=== PATIENT | female | born 1965 | race Caucasian/White ===

== ENCOUNTER 2017-04-28 16:59 | Emergency (ER) | payer OTHER ==
[~2017-04-28 16:59] MED LIST: ALBU8.5H12 IH; AZIT500T47 PO; BUDE10.2 INH; BUP100 PO; BUPR-472 PO; CEFU500T10 PO; CYCL10TA29 PO; DES100PT PO; DESV50TA9 PO; DUL100/5PT INH; ENO100I SC; HYDR-4228 PO; IBUP800T37 PO; LOR5/325 PO; METH20TA33 PO; PER PO; PRED20TA6 PO; WAR5 PO
--- NOTE | 2017-04-28 17:16 | ER Report ---
History and Physical Time Seen By MD: 17:16 (TORO SEQUEIRA DO) HPI/ROS CHIEF COMPLAINT: l flank pain HISTORY OF PRESENT ILLNESS: Pt states that she started with left flank pain 4 days ago. Pain is sharp and is now constant. unable to get comfortable. + nausea. no vomiting. no diarrhea now but states when she was in [place] Apr 06 she had diarrhea but it resolved. Pt denies fever. no sob. no cough or cp. Pt denies dysuria. pt states she also has had intermittent rlq abd pain for about a month but that is not there currently. PT tried excedrin pain with no relief. REVIEW OF SYSTEMS: Constitutional: No fever, no chills. Eyes: No discharge. ENT: No sore throat. Cardiovascular: No chest pain, no palpitations. Respiratory: No cough, no shortness of breath. Gastrointestinal: +L flank/ abdominal pain, no vomiting, + nausea Genitourinary: No hematuria. Musculoskeletal: + left flank/ back pain. Skin: No rashes. Neurological: No headache. (TORO SEQUEIRA DO) Allergies: Coded Allergies: codeine (Verified Allergy, Mild, VOMITING, 12/22/15) Home Meds Active Scripts Fluconazole (FLUCONAZOLE) 150 Mg Tab, 150 MG FT ONCE for treatment of yeast infection, #1 TAB Prov:DUGLAS ÁLVAREZ 04/28/17 Ondansetron Hcl (ZOFRAN) 4 Mg Tablet, 4 MG PO Q6H Y for NAUSEA/VOMITING, #12 Prov:DUGLAS ÁLVAREZ Phillip SANTIAGO 04/28/17 Oxycodone Hcl/Acetaminophen (PERCOCET 5-325 MG TABLET) 1 Each Tablet, 1 EACH PO Q4-6H Y for PAIN, #12 Prov:MEDARDO ÁLVAREZY Phillip SANTIAGO 04/28/17 Ciprofloxacin Hcl (CIPRO) 500 Mg Tablet, 500 MG PO BID for infection, #14 Prov:DUGLAS ÁLVAREZ 04/28/17 Reported Medications Lamotrigine (LAMICTAL) 200 Mg Tablet, 200 MG PO 04/28/17 Methylphenidate Hcl (RITALIN) 20 Mg Tablet, 40 MG PO 04/28/17 Hydroxyzine Hcl (HYDROXYZINE HCL) 50 Mg Tablet, 50 MG PO 12/22/15 Bupropion Hcl (WELLBUTRIN XL) 150 Mg Tab.er.24h, 300 MG PO DAILY, #30 4/12/15 Discontinued Reported Medications Albuterol Sul Hfa 90 Mcg 8 Gm (VENTOLIN HFA 90 MCG 8 GM) 8.5 Gm Hfa.aer.ad, 2 PUFF IH Q4-6H Y for SHORTNESS OF BREATH 05/24/14 Discontinued Scripts Methylphenidate Hcl (RITALIN) 20 Mg Tablet, 20 MG PO 1-2XD, #60 TAB Prov:MIGNON HARPER MD 05/25/14 Past Medical/Surgical History pmhx: sleep apnea, ADHD Pshx: tubal, uterin ablation, TA, b/l knee surgery, wrist L, stomach stappling, lumbar fusion (TORO SEQUEIRA DO) Reviewed Nurses Notes: Yes (TORO SEQUEIRA DO) Hx Smoking: No Smoking Status: Never Smoker Exposure to Second Hand Smoke?: Yes (as a child) Hx Substance Use Disorder: No Hx Alcohol Use: Yes (TORO SEQUEIRA DO) Constitutional Vital Sign - Last 24 Hours 04/28/17 04/28/17 04/28/17 04/28/17 17:14 17:15 17:18 17:29 Temp 98.2 Pulse ??? 82 82 Resp 16 B/P (MAP) 119/82 (94) 119/82 Pulse Ox 96 94 O2 Delivery Room Air 04/28/17 04/28/17 04/28/17 04/28/17 17:44 17:47 17:59 18:04 Pulse 74 78 75 B/P (MAP) 110/67 (81) Pulse Ox 95 91 92 (DUGLAS ÁLVAREZ DO) Physical Exam General Appearance: The patient is alert, has no immediate need for airway protection and no signs of toxicity. Eyes: Pupils equal and round no pallor or injection, EOMI ENT: no pharyngeal erythema or exudates, Mucous membranes are moist, TM are nl b/l Respiratory: There are no retractions, lungs are clear to auscultation. Cardiovascular: Regular rate and rhythm. pulses are equal and symmetrical Gastrointestinal: Abdomen is soft and non tender, no masses, bowel sounds normal, no guarding, no rigidity or rebound Neurological: Cranial nerves II-XII grossly intact, no sensory or motor loss Skin: Warm and dry, no rashes. Musculoskeletal: Neck is supple non tender, no vertebral tenderness, + L CVA tenderness Extremities are nontender, nonswollen and have full range of motion. DIFFERENTIAL DIAGNOSIS: After history and physical exam differential diagnosis was considered for kidney stone, uti, pyelo, muscleskeletal, colitis (LAURORA,TROO V DO) Medical Decision Making Data Points Result Diagram: 04/28/17 1800 04/28/17 1800 Laboratory Hematology Test 04/28/17 17:12 04/28/17 18:00 Urine Color Yellow Urine Clarity Slightly-cloudy Urine pH 5.0 pH (4.8-9.5) Urine Specific [place] 1.027 Urine Protein Negative mg/dL (NEGATIVE) Urine Glucose (UA) Negative mg/dL (NEGATIVE) Urine Ketones Negative mg/dL (NEGATIVE) Urine Blood Negative (NEGATIVE) Urine Nitrite Negative (NEGATIVE) Urine Bilirubin Negative (NEGATIVE) Urine Urobilinogen Negative mg/dL (0.2-1.9) Urine Leukocyte Esterase Moderate (NEGATIVE) Urine RBC 2 /HPF (0-2/HPF) Urine WBC 6 /HPF (0-5/HPF) Urine Squamous Epithelial Cells Many /LPF (</=FEW) Urine Bacteria Few /HPF (NONE-FEW) Urine Mucus Few /HPF (NONE-FEW) Red Blood Count 4.80 M/uL (4.17-5.56) Mean Corpuscular Volume 93.2 fL (80.0-96.0) Mean Corpuscular Hemoglobin 32.2 pg (26.0-33.0) Mean Corpuscular Hemoglobin Concent 34.5 g/dL (32.0-36.0) Red Cell Distribution Width 13.0 % (11.5-14.5) Mean Platelet Volume 10.3 fL (7.2-11.1) Neutrophils (%) (Auto) 52.2 % (39.4-72.5) Lymphocytes (%) (Auto) 35.5 % (17.6-49.6) Monocytes (%) (Auto) 7.7 % (4.1-12.4) Eosinophils (%) (Auto) 3.7 % (0.4-6.7) Basophils (%) (Auto) 0.9 % (0.3-1.4) Nucleated RBC Relative Count (auto) 0.0 /100WBC Neutrophils # (Auto) 3.7 K/uL (2.0-7.4) Lymphocytes # (Auto) 2.5 K/uL (1.3-3.6) Monocytes # (Auto) 0.5 K/uL (0.3-1.0) Eosinophils # (Auto) 0.3 K/uL (0.0-0.5) Basophils # (Auto) 0.1 K/uL (0.0-0.1) Nucleated RBC Absolute Count (auto) 0.00 K/uL Sodium Level 140 mmol/L (137-145) Potassium Level 4.0 mmol/L (3.5-5.0) Chloride Level 102 mmol/L (98-107) Carbon Dioxide Level 26 mmol/L (22-31) Blood Urea Nitrogen 9 mg/dl (7-18) Creatinine 0.80 mg/dl (0.52-1.04) Glomerular Filtration Rate Calc > 60.0 Random Glucose 65 mg/dl (75-110) Calcium Level 9.4 mg/dl (8.4-10.2) Total Bilirubin 0.4 mg/dl (0.2-1.3) Aspartate Amino Transf (AST/SGOT) 32 U/L (0-35) Alanine Aminotransferase (ALT/SGPT) 37 U/L (0-56) Alkaline Phosphatase 85 U/L (0-126) Total Protein 7.4 gm/dl (6.3-8.2) Albumin 4.1 g/dl (3.5-5.0) Chemistry Test 04/28/17 17:12 04/28/17 18:00 Urine Color Yellow Urine Clarity Slightly-cloudy Urine pH 5.0 pH (4.8-9.5) Urine Specific [place] 1.027 Urine Protein Negative mg/dL (NEGATIVE) Urine Glucose (UA) Negative mg/dL (NEGATIVE) Urine Ketones Negative mg/dL (NEGATIVE) Urine Blood Negative (NEGATIVE) Urine Nitrite Negative (NEGATIVE) Urine Bilirubin Negative (NEGATIVE) Urine Urobilinogen Negative mg/dL (0.2-1.9) Urine Leukocyte Esterase Moderate (NEGATIVE) Urine RBC 2 /HPF (0-2/HPF) Urine WBC 6 /HPF (0-5/HPF) Urine Squamous Epithelial Cells Many /LPF (</=FEW) Urine Bacteria Few /HPF (NONE-FEW) Urine Mucus Few /HPF (NONE-FEW) White Blood Count 7.0 k/uL (4.5-11.0) Red Blood Count 4.80 M/uL (4.17-5.56) Hemoglobin 15.4 g/dL (12.0-16.0) Hematocrit 44.8 % (34.0-47.0) Mean Corpuscular Volume 93.2 fL (80.0-96.0) Mean Corpuscular Hemoglobin 32.2 pg (26.0-33.0) Mean Corpuscular Hemoglobin Concent 34.5 g/dL (32.0-36.0) Red Cell Distribution Width 13.0 % (11.5-14.5) Platelet Count 252 K/uL (150-450) Mean Platelet Volume 10.3 fL (7.2-11.1) Neutrophils (%) (Auto) 52.2 % (39.4-72.5) Lymphocytes (%) (Auto) 35.5 % (17.6-49.6) Monocytes (%) (Auto) 7.7 % (4.1-12.4) Eosinophils (%) (Auto) 3.7 % (0.4-6.7) Basophils (%) (Auto) 0.9 % (0.3-1.4) Nucleated RBC Relative Count (auto) 0.0 /100WBC Neutrophils # (Auto) 3.7 K/uL (2.0-7.4) Lymphocytes # (Auto) 2.5 K/uL (1.3-3.6) Monocytes # (Auto) 0.5 K/uL (0.3-1.0) Eosinophils # (Auto) 0.3 K/uL (0.0-0.5) Basophils # (Auto) 0.1 K/uL (0.0-0.1) Nucleated RBC Absolute Count (auto) 0.00 K/uL Glomerular Filtration Rate Calc > 60.0 Calcium Level 9.4 mg/dl (8.4-10.2) Total Bilirubin 0.4 mg/dl (0.2-1.3) Aspartate Amino Transf (AST/SGOT) 32 U/L (0-35) Alanine Aminotransferase (ALT/SGPT) 37 U/L (0-56) Alkaline Phosphatase 85 U/L (0-126) Total Protein 7.4 gm/dl (6.3-8.2) Albumin 4.1 g/dl (3.5-5.0) Urinalysis Test 04/28/17 17:12 Urine Color Yellow Urine Clarity Slightly-cloudy Urine pH 5.0 pH (4.8-9.5) Urine Specific [place] 1.027 Urine Protein Negative mg/dL (NEGATIVE) Urine Glucose (UA) Negative mg/dL (NEGATIVE) Urine Ketones Negative mg/dL (NEGATIVE) Urine Blood Negative (NEGATIVE) Urine Nitrite Negative (NEGATIVE) Urine Bilirubin Negative (NEGATIVE) Urine Urobilinogen Negative mg/dL (0.2-1.9) Urine Leukocyte Esterase Moderate (NEGATIVE) Urine RBC 2 /HPF (0-2/HPF) Urine WBC 6 /HPF (0-5/HPF) Urine Squamous Epithelial Cells Many /LPF (</=FEW) Urine Bacteria Few /HPF (NONE-FEW) Urine Mucus Few /HPF (NONE-FEW) (DUGLAS ÁLVAREZ DO) Microbiology Microbiology Date/Time Source Procedure Growth Status 04/28/17 18:00 Clean Catch Midstream Ur Urine Culture - Final CONTAMINATED URINE:... Complete (DUGLAS ÁLVAREZ DO) EKG/Imaging Imaging Results: CT scan of the abdomen and pelvis with IV contrast was obtained. The results of the study are COMPUTED TOMOGRAPHY OF THE Abdomen and Pelvis with CONTRAST INDICATION: Left flank pain. TECHNIQUE: Contiguous axial 3.[address] images were obtained through the abdomen and pelvis after the administration of 75 cc Isovue-370. Coronal and sagittal reformatted images were submitted. COMPARISON: Chest and lumbar spine radiographs from January 19, 2016 and August. FINDINGS: Lung bases: Trace atelectasis at the lung bases. Liver and hepatic vasculature: No focal liver lesion. No ascites. Gallbladder and bile ducts: The common bile duct is dilated which may be sequela of cholecystectomy. There is faint haziness within the fat adjacent to the common bile duct and the pancreatic head. No discrete fluid collection. No obstructive mass or radiopaque stone. No pancreatic duct dilation. Spleen: Normal Pancreas: Pancreatic body and tail are normal. Haziness in the region of the pancreatic head as above. Adrenals: Normal Kidneys, ureters and bladder: There is no hydronephrosis. The proximal ureters are normal in caliber. The distal ureters at the bladder as well as the bladder are obscured by streak artifact from the hip prostheses. Retroperitoneum and aorta: Normal caliber aorta. GI tract, mesentery and peritoneum: Postsurgical change at the stomach. No bowel obstruction. No free fluid or free air. There are a few scattered colonic diverticula without findings of diverticulitis. Uterus and adnexa: Largely obscured. Bones and soft tissues: Anterolisthesis of L5 on S1 is degenerative in nature with severe facet arthropathy at this level and partial fusion across the facets. Multilevel disc, endplate, and facet arthropathy at additional lumbar levels. IMPRESSION: 1. There is no hydronephrosis or stone in the proximal collecting system. The downstream ureters and the bladder are obscured by streak artifact. 2. Subtle haziness adjacent to the common bile duct in the region of the pancreatic head could potentially reflect pancreatitis. Correlate with pancreatic enzymes and suspicion thereof. 3. Dilation of the common bile duct may be sequelae of cholecystectomy as there is no obstructing mass or radiopaque stone. The study was read by the radiologist. I viewed the images myself on the PACS system. (DUGLAS ÁLVAREZ DO) ED Course/Re-evaluation ED Course check labs and ct Signed out to Dr. Álvarez pending CT report. Decision to Disposition Date: Apr 28, 2017 Decision to Disposition Time: 19:00 (TORO SEQUEIRA DO) ED Course Care assumed at shift change awaiting diagnostic CT results. The results were unremarkable. The a copy of the report was provided to the patient. The results were discussed with the patient. He is discharged home with conservative treatment plan. Patient has urinary tract symptoms. She'll be covered with Cipro. She is given Percocet for pain relief and Zofran for nausea treatment. Patient also given fluconazole for likely yeast infection, which she states she gets frequently when she receives antibiotics. Patient advised to follow-up with primary care if unimproved in 3-5 days for further diagnostic evaluation. Referral to specialty care. Decision to Disposition Date: Apr 28, 2017 Decision to Disposition Time: 19:18 (DUGLAS ÁLVAREZ DO) Depart Departure Latest Vital Signs Vital Signs Date Time Temp Pulse Resp B/P (MAP) Pulse Ox O2 Delivery O2 Flow Rate FiO2 04/28/17 18:04 75 92 04/28/17 17:47 110/67 (81) 04/28/17 17:18 98.2 16 Room Air (DUGLAS ÁLVAREZ DO) Impression: Primary Impression: Abdominal pain Additional Impressions: Urinary tract infection Nausea Condition: Improved Disposition: HOME OR SELF-CARE Referrals: PAUL FERGUSON MD (PCP) New Scripts Fluconazole (FLUCONAZOLE) 150 Mg Tab 150 MG FT ONCE for treatment of yeast infection, #1 TAB Prov: DUGLAS ÁLVAREZ DO 04/28/17 Ondansetron Hcl (ZOFRAN) 4 Mg Tablet 4 MG PO Q6H Y for NAUSEA/VOMITING, #12 Prov: DUGLAS ÁLVAREZ DO 04/28/17 Oxycodone Hcl/Acetaminophen (PERCOCET 5-325 MG TABLET) 1 Each Tablet 1 EACH PO Q4-6H Y for PAIN, #12 Prov: DUGLAS ÁLVAREZ DO 04/28/17 Ciprofloxacin Hcl (CIPRO) 500 Mg Tablet 500 MG PO BID for infection, #14 Prov: DUGLAS ÁLVAREZ DO 04/28/17 Patient Instructions: Abdominal Pain (ED), Urinary Tract Infection in Women (ED ) Additional Instructions: Follow clear liquid diet for 24-48 hours and advance to Mauri diet, bananas, rice, applesauce and toast Take ibuprofen 200 mg 3 tablets 3 times a day for inflammatory pain relief Take other prescriptions as prescribed Follow-up with Dr. Allen if unimproved in 2-4 days Problem Qualifiers Primary Impression: Abdominal pain Abdominal location: left upper quadrant Qualified Codes: R10.12 - Left upper quadrant pain Additional Impressions: Urinary tract infection Urinary tract infection type: acute cystitis Hematuria presence: without hematuria Qualified Codes: N30.00 - Acute cystitis without hematuria TORO SEQUEIRA V DO Apr 28, 2017 17:16 DUGLAS ÁLVAREZ DO Apr 28, 2017 19:22
[2017-04-28] MEDS ORDERED: METH20TA33 PO (17:25)
[2017-04-28] MEDS ORDERED: LAMO200T46 PO (17:25)
[2017-04-28] MEDS ORDERED: IOPAMIDOL 76% 75 ML INFUS BTL 75 ML ONE (17:31)
[2017-04-28] MEDS ORDERED: KETOROLAC 30 MG/ML VIAL IVP ONE (17:35)
[2017-04-28 17:47] VITALS: BP 110/67
[2017-04-28 18:14] LABS: PLATELET COUNT, AUTOMATED 252 K/uL (150-450)
--- NOTE | 2017-04-28 19:00 | RADIOLOGY IMAGING REPORT ---
FACILITY: [facility] - [place], [place] PATIENT NAME: Vane Cline : 1965 MR: [id number] V: [id number] EXAM DATE: ORDERING PHYSICIAN: TORO SEQUEIRA TECHNOLOGIST: Location: [facility] [place] Patient: Vane Cline : 1965 Visit/Account:[id number] Date of Sevice: 04/28/2017 COMPUTED TOMOGRAPHY OF THE Abdomen and Pelvis with CONTRAST INDICATION: Left flank pain. TECHNIQUE: Contiguous axial 3.[address] images were obtained through the abdomen and pelvis after the administration of 75 cc Isovue-370. Coronal and sagittal reformatted images were submitted. COMPARISON: Chest and lumbar spine radiographs from January 19, 2016 and August 14, 2014. FINDINGS: Lung bases: Trace atelectasis at the lung bases. Liver and hepatic vasculature: No focal liver lesion. No ascites. Gallbladder and bile ducts: The common bile duct is dilated which may be sequela of cholecystectomy. There is faint haziness within the fat adjacent to the common bile duct and the pancreatic head. No discrete fluid collection. No obstructive mass or radiopaque stone. No pancreatic duct dilation. Spleen: Normal Pancreas: Pancreatic body and tail are normal. Haziness in the region of the pancreatic head as abov e. Adrenals: Normal Kidneys, ureters and bladder: There is no hydronephrosis. The proximal ureters are normal in caliber . The distal ureters at the bladder as well as the bladder are obscured by streak artifact from the h ip prostheses. Retroperitoneum and aorta: Normal caliber aorta. GI tract, mesentery and peritoneum: Postsurgical change at the stomach. No bowel obstruction. No free fluid or free air. There are a few scattered colonic diverticula without findings of diverticulitis. Uterus and adnexa: Largely obscured. Bones and soft tissues: Anterolisthesis of L5 on S1 is degenerative in nature with severe facet arthr opathy at this level and partial fusion across the facets. Multilevel disc, endplate, and facet arthr opathy at additional lumbar levels. IMPRESSION: 1. There is no hydronephrosis or stone in the proximal collecting system. The downstream ureters and the bladder are obscured by streak artifact. 2. Subtle haziness adjacent to the common bile duct in the region of the pancreatic head could potent ially reflect pancreatitis. Correlate with pancreatic enzymes and suspicion thereof. 3. Dilation of the common bile duct may be sequelae of cholecystectomy as there is no obstructing mas s or radiopaque stone. One of the following dose optimization techniques was utilized in the performance of this exam: Autom ated exposure control; adjustment of the mA and/or kV according to the patient's size; or use of an i terative reconstruction technique. Specific details can be referenced in the facility's radiology C T exam operational policy. Report Dictated By: Kaley Clarke MD at 04/28/2017 6:50 PM Report E-Signed By: Kaley Clarke MD at 04/28/2017 6:56 PM WSN:[id number]
[2017-04-28] MEDS ORDERED: ONDANSETRON 4 MG ODT TH SL ONE (19:20)
[2017-04-28] MEDS ORDERED: oxyCODONE/ACETAMIN 5/325MG TH 2 TAB/BOTTLE PO ONE (19:20)
[2017-04-28] MEDS ORDERED: CIPROFLOXACIN 500 MG TAB PO ONE (19:20)
[2017-04-28] MEDS ORDERED: OXYC-865 PO (19:21)
[2017-04-28] MEDS ORDERED: CIPR-344 PO (19:21)
[2017-04-28] MEDS ORDERED: ONDA4TAB97 PO (19:21)
[2017-04-28] MEDS ORDERED: FLU150 FT (20:03)
== END 2017-04-28 20:03 | disposition home or self-care (01) ==
LOC: ER 17:16
DX: N30.00 Acute cystitis without hematuria (principal)
CPT/HCPCS: 74177; 81001; 85025; 87088; 96374; 99284; J1885; Q9967; S0119; 82040; 82247; 82310; 82374; 82435; 82565; 82947; 84075; 84132; 84155; 84295; 84450; 84460; 84520

== ENCOUNTER 2017-07-23 15:33 | Emergency (ER) | payer OTHER ==
[~2017-07-23 15:33] MED LIST changes: +CIPR-344 PO; +FLU150 FT; +LAMO200T46 PO; +ONDA4TAB97 PO; +OXYC-865 PO
[2017-07-23 15:40] VITALS: BP 121/62
--- NOTE | 2017-07-23 16:17 | ER Report ---
History and Physical Time Seen By MD: 15:47 Hx. of Stated Complaint: ABSCESS TO RIGHT POSTERIOR THIGH. HPI/ROS CHIEF COMPLAINT: Abscess HISTORY OF PRESENT ILLNESS: This is a 52-year-old female presents to the emergency department for a right posterior leg abscess. Patient was sent from the [facility], for an abscess to the right posterior leg. Patient states that the discomfort and abscess started on Sunday becoming significantly worse and more uncomfortable decided to go in for evaluation, the clinic called and said that this wouldn't require more than what they have available at the clinic. Patient denies aches, chills, nausea, vomiting, chest pain or shortness of breath. No headaches. REVIEW OF SYSTEMS: Respiratory: No cough, no dyspnea. Cardiovascular: No chest pain, no palpitations. Gastrointestinal: No vomiting, no abdominal pain. Musculoskeletal: No back pain. Integumentary: As above. Allergies: Coded Allergies: codeine (Verified Allergy, Mild, VOMITING, 12/22/15) Home Meds Active Scripts Fluconazole (DIFLUCAN) 150 Mg Tablet, 150 MG PO QDAY for 1 Day, #1 TAB 0 Refills Prov:PAULETTE WILLIS [facility] 07/23/17 Sulfamethoxazole/Trimet 800-160 Mg Tab (BACTRIM DS TABLET) 1 Each Tablet, 1 TAB PO Q12H, #20 TAB Prov:PAULETTE WILLIS [facility]- 07/23/17 Fluconazole (FLUCONAZOLE) 150 Mg Tab, 150 MG FT ONCE for treatment of yeast infection, #1 TAB Prov:DUGLAS MCDOWELL DO 04/28/17 Ondansetron Hcl (ZOFRAN) 4 Mg Tablet, 4 MG PO Q6H Y for NAUSEA/VOMITING, #12 Prov:DUGLAS MCDOWELL DO 04/28/17 Oxycodone Hcl/Acetaminophen (PERCOCET 5-325 MG TABLET) 1 Each Tablet, 1 EACH PO Q4-6H Y for PAIN, #12 Prov:DUGLAS MCDOWELL DO 04/28/17 Reported Medications Lamotrigine (LAMICTAL) 200 Mg Tablet, 200 MG PO 04/28/17 Methylphenidate Hcl (RITALIN) 20 Mg Tablet, 40 MG PO 04/28/17 Hydroxyzine Hcl (HYDROXYZINE HCL) 50 Mg Tablet, 50 MG PO 12/22/15 Bupropion Hcl (WELLBUTRIN XL) 150 Mg Tab.er.24h, 300 MG PO DAILY, #30 05/24/14 Discontinued Scripts Ciprofloxacin Hcl (CIPRO) 500 Mg Tablet, 500 MG PO BID for infection, #14 Prov:DUGLAS MCDOWELL DO 04/28/17 Past Medical/Surgical History The patient has a past medical and surgical history DVT, sleep apnea, asthma, IBS, stomach stapled,, at her disease, bladder leakage, arthritis, wears glasses and contacts, stress eating, anxiety, hysterectomy, tubal ligation, lumbar fusion, left wrist surgery, bilateral hip replacements, tonsillectomy. Reviewed Nurses Notes: Yes Hx Smoking: No Smoking Status: Never Smoker Exposure to Second Hand Smoke?: Yes (as a child) Hx Substance Use Disorder: No Hx Alcohol Use: Yes Constitutional Vital Sign - Last 24 Hours 07/23/17 15:40 Temp 98.7 Pulse 78 Resp 18 B/P (MAP) 121/62 Pulse Ox 95 O2 Delivery Room Air Physical Exam General Appearance: The patient is alert, has no immediate need for airway protection and no current signs of toxicity. Eyes: Pupils equal and round no injection. Respiratory: Chest is non tender, lungs are clear to auscultation. Cardiac: regular rate and rhythm. Gastrointestinal: Abdomen is soft and non tender, no masses, bowel sounds normal. Musculoskeletal: Neck: Neck is supple and non tender. Extremities have full range of motion and are non tender. Skin: Large amount of erythema and induration to the posterior aspect of the right upper leg. There is one 1/4cm area that is raised with purulent drainage. DIFFERENTIAL DIAGNOSIS: After history and physical exam differential diagnosis was considered for abscess, cellulitis and DVT. Medical Decision Making Data Points Laboratory Hematology Test 07/23/17 17:07 Whole Blood Glucose 105 mg/DL (75-110) Chemistry Test 07/23/17 17:07 Whole Blood Glucose 105 mg/DL (75-110) ED Course/Re-evaluation ED Course The patient was admitted to a room. A history and physical were obtained. Differential diagnoses were considered. The patient did have an abscessed area to the right posterior thigh, with a large amount of erythema and induration with a white peaked that was draining a small amount of purulent drainage. The area was anesthetized and the abscess was drained as noted below. A culture was obtained sent to the lab. Patient was placed on Bactrim. A small wick was placed patient was instructed to return in 24 hours for reevaluation. Return sooner if symptoms become significantly worse. Patient had no other questions or concerns at this time and was discharged home. Patient was in agreement with this plan of care. Procedure: Abscess drainage. The patient's abscess was located on the right posterior thigh. I obtained verbal consent from the patient to drain the abscess who was informed about the possibility of bleeding and pain. The abscess was incised with a scalpel and a small amount of purulent drainage was expressed. I did attempt to break up loculations and placed some packing. The patient tolerated the procedure well. The procedure was performed by myself and JULIA Hernandez student.. Decision to Disposition Date: Jul 23, 2017 Decision to Disposition Time: 17:04 Depart Departure Latest Vital Signs Vital Signs Date Time Temp Pulse Resp B/P (MAP) Pulse Ox O2 Delivery O2 Flow Rate FiO2 07/23/17 15:40 98.7 78 18 121/62 95 Room Air Impression: Primary Impression: Abscess Condition: Improved Disposition: HOME OR SELF-CARE Referrals: PAUL FERGUSON MD (PCP) New Scripts Fluconazole (DIFLUCAN) 150 Mg Tablet 150 MG PO QDAY for 1 Day, #1 TAB 0 Refills Prov: PAULETTE WILLIS 07/23/17 Sulfamethoxazole/Trimet 800-160 Mg Tab (BACTRIM DS TABLET) 1 Each Tablet 1 TAB PO Q12H, #20 TAB Prov: PAULETTE WILLIS 07/23/17 Patient Instructions: Abscess (ED) Additional Instructions: Drink plenty of fluids. Get plenty of rest. Take Tylenol as needed for pain. Keep the wound covered until you follow up tomorrow. Return in 24 hours for reevaluation of the wound. Take the antibiotics as indicated. Return to the ED sooner if needed. PAULETTE WILLIS Jul 23, 2017 16:17
[2017-07-23] MEDS ORDERED: SULF-198 PO (17:05)
[2017-07-23] MEDS ORDERED: FLUC150T40 PO (18:26)
[2017-07-24] MEDS ORDERED: OXYC-865 PO (14:14)
== END 2017-07-23 17:15 | disposition home or self-care (01) ==
LOC: ER 15:35
DX: L02.415 Cutaneous abscess of right lower limb (principal); A49.01 Methicillin susceptible Staphylococcus aureus infection, unspecified site
CPT/HCPCS: 36416; 82948; 87070; 87077; 87186; 99282

== ENCOUNTER 2017-07-24 13:50 | Emergency (ER) | payer OTHER ==
[~2017-07-24 13:50] MED LIST changes: +FLUC150T40 PO; +SULF-198 PO
--- NOTE | 2017-07-24 13:54 | ER Report ---
History and Physical Time Seen By MD: 13:54 HPI/ROS CHIEF COMPLAINT: Reevaluation of abscess HISTORY OF PRESENT ILLNESS: Patient is a 52-year-old female who was seen in the emergency department yesterday for evaluation of a posterior right thigh abscess that was I indeed. Patient is currently on Bactrim 1 tablet twice per day. He is not currently on any pain medication. She does report about 6 out of 10 pain to the area which increases when she is sitting. She denies any fevers or chills. REVIEW OF SYSTEMS: Constitutional: No fever, no chills. Skin: Improvement in redness and swelling Allergies: Coded Allergies: codeine (Verified Allergy, Mild, VOMITING, 12/22/15) Home Meds Active Scripts Oxycodone Hcl/Acetaminophen (PERCOCET 5-325 MG TABLET) 1 Each Tablet, 1 EACH PO Q6H for PAIN, #10 TAB 0 Refills Prov:KARLI GLORIA MD 07/24/17 Fluconazole (DIFLUCAN) 150 Mg Tablet, 150 MG PO QDAY for 1 Day, #1 TAB 0 Refills Prov:PAULETTE WILLIS [facility]- 07/23/17 Sulfamethoxazole/Trimet 800-160 Mg Tab (BACTRIM DS TABLET) 1 Each Tablet, 1 TAB PO Q12H, #20 TAB Prov:PALUETTE WILLIS [facility]- 07/23/17 Fluconazole (FLUCONAZOLE) 150 Mg Tab, 150 MG FT ONCE for treatment of yeast infection, #1 TAB Prov:DUGLAS MCDOWELL DO 04/28/17 Ondansetron Hcl (ZOFRAN) 4 Mg Tablet, 4 MG PO Q6H Y for NAUSEA/VOMITING, #12 Prov:DUGLAS MCDOWELL DO 04/28/17 Oxycodone Hcl/Acetaminophen (PERCOCET 5-325 MG TABLET) 1 Each Tablet, 1 EACH PO Q4-6H Y for PAIN, #12 Prov:DUGLAS MCDOWELL DO 04/28/17 Reported Medications Lamotrigine (LAMICTAL) 200 Mg Tablet, 200 MG PO 04/28/17 Methylphenidate Hcl (RITALIN) 20 Mg Tablet, 40 MG PO 04/28/17 Hydroxyzine Hcl (HYDROXYZINE HCL) 50 Mg Tablet, 50 MG PO 12/22/15 Bupropion Hcl (WELLBUTRIN XL) 150 Mg Tab.er.24h, 300 MG PO DAILY, #30 05/24/14 Discontinued Scripts Ciprofloxacin Hcl (CIPRO) 500 Mg Tablet, 500 MG PO BID for infection, #14 Prov:DUGLAS MCDOWELL DO 04/28/17 Past Medical/Surgical History Noncontributory towards the chief complaint Hx Smoking: No Smoking Status: Never Smoker Exposure to Second Hand Smoke?: Yes (as a child) Hx Substance Use Disorder: No Hx Alcohol Use: Yes Constitutional Vital Sign - Last 24 Hours 07/24/17 13:56 Temp 98.3 Pulse 75 Resp 18 B/P (MAP) 121/69 Pulse Ox 94 Physical Exam General appearance: Alert no distress. Skin exam: Interval improvement of erythema. There is an area of induration that is approximately 3-1/2 cm in diameter. This is tender to the touch there is no expressible pus from the wound. Side ultrasound was performed and no drainable fluid was seen at this time. Medical Decision Making ED Course/Re-evaluation ED Course 07/24/2017 2:12:56 pm plan at this time will be to give 1 dose of IV antibiotics have the patient continue her outpatient antibiotics I will also prescribe a very short course of oral Percocet. Decision to Disposition Date: Jul 24, 2017 Decision to Disposition Time: 15:00 Depart Departure Latest Vital Signs Vital Signs Date Time Temp Pulse Resp B/P (MAP) Pulse Ox O2 Delivery O2 Flow Rate FiO2 07/24/17 13:56 98.3 75 18 121/69 94 Impression: Primary Impression: Encounter for wound re-check Condition: Improved Disposition: HOME OR SELF-CARE Referrals: PAUL FERGUSON MD (PCP) New Scripts Oxycodone Hcl/Acetaminophen (PERCOCET 5-325 MG TABLET) 1 Each Tablet 1 EACH PO Q6H for PAIN, #10 TAB 0 Refills Prov: KARLI GLORIA MD 07/24/17 Patient Instructions: Cellulitis (ED) Additional Instructions: Continue to take your antibiotics as directed. If redness, pain or swelling worsen or she develop fever you should return to the emergency department for reevaluation. KARLI GLORIA MD Jul 24, 2017 13:54
[2017-07-24 13:56] VITALS: BP 121/69
[2017-07-24] MEDS ORDERED: cefTRIAXone(*) 1 GM VIAL 1 GM in NS(*) 0.9% 100 ML ADDVANT BAG 100 ML IVPB ONE (14:00)
[2017-07-24] MEDS ORDERED: MORPHINE 4 MG/ML SDV IVP ONE (14:10)
[2017-07-24] MEDS ORDERED: OXYC-865 PO (14:14)
== END 2017-07-24 15:18 | disposition home or self-care (01) ==
LOC: ER 13:53
DX: L02.415 Cutaneous abscess of right lower limb (principal)
CPT/HCPCS: 96374; 99281; J0696; J2270; J7050

== ENCOUNTER 2018-06-22 03:59 | Emergency (ER) | payer OTHER ==
--- NOTE | 2018-06-22 04:15 | ER Report ---
History and Physical Time Seen By MD: 04:15 Hx. of Stated Complaint: PATIENT COMPLAINS OF RIGHT HIP PAIN THAT RADIATES DOWN LEG HPI/ROS CHIEF COMPLAINT: right hip pain HISTORY OF PRESENT ILLNESS: This is a 53 year old female. She is having right hip pain in upper hip and buttock area with radiation to the upper leg. Supa cribed as sharp. Had this mild starting about 1 week ago, severe worsening over the last 24 hours. Unable to sleep tonight. Has alternating constipation and loose stools due to IBS, but no incontinence. Some chronic urinary leakage, unchanged. No foot drop, but difficulty with movement because of pain. Normal sensation. Allergies: Coded Allergies: codeine (Verified Allergy, Mild, VOMITING, 06/22/18) Home Meds Active Scripts Tizanidine Hcl (TIZANIDINE HCL) 4 Mg Tablet, 4 MG PO Q8H PRN for PAIN, #20 TAB 0 Refills Prov:SEEMA IGLESIAS MD 06/22/18 Hydrocodone Bit/Acetaminophen (HYDROCODON-ACETAMINOPHEN 5-325) 1 Each Tablet, 1 EACH PO Q4H PRN for PAIN, #12 TAB 0 Refills Prov:SEEMA IGLESIAS MD 06/22/18 Reported Medications Lamotrigine (LAMICTAL) 200 Mg Tablet, 200 MG PO 04/28/17 Methylphenidate Hcl (RITALIN) 20 Mg Tablet, 40 MG PO 04/28/17 Bupropion Hcl (WELLBUTRIN XL) 150 Mg Tab.er.24h, 300 MG PO DAILY, #30 05/24/14 Discontinued Reported Medications Hydroxyzine Hcl (HYDROXYZINE HCL) 50 Mg Tablet, 50 MG PO 12/22/15 Discontinued Scripts Oxycodone Hcl/Acetaminophen (PERCOCET 5-325 MG TABLET) 1 Each Tablet, 1 EACH PO Q6H for PAIN, #10 TAB 0 Refills Prov:KARLI GLORIA MD 07/24/17 Fluconazole (DIFLUCAN) 150 Mg Tablet, 150 MG PO QDAY for 1 Day, #1 TAB 0 Refills Prov:PAULETTE WILLIS-[facility] 07/23/17 Sulfamethoxazole/Trimet 800-160 Mg Tab (BACTRIM DS TABLET) 1 Each Tablet, 1 TAB PO Q12H, #20 TAB Prov:PAULETTE WILLIS-[facility] 07/23/17 Fluconazole (FLUCONAZOLE) 150 Mg Tab, 150 MG FT ONCE for treatment of yeast infection, #1 TAB Prov:DUGLAS MCDOWELL DO 04/28/17 Ondansetron Hcl (ZOFRAN) 4 Mg Tablet, 4 MG PO Q6H PRN for NAUSEA/VOMITING, #12 Prov:DUGLAS MCDOWELL DO 04/28/17 Oxycodone Hcl/Acetaminophen (PERCOCET 5-325 MG TABLET) 1 Each Tablet, 1 EACH PO Q4-6H PRN for PAIN, #12 Prov:DUGLAS MCDOWELL DO 04/28/17 Reviewed Nurses Notes: Yes Hx Smoking: No Smoking Status: Never Smoker Exposure to Second Hand Smoke?: Yes (as a child) Hx Substance Use Disorder: No Hx Alcohol Use: Yes Constitutional Vital Sign - Last 24 Hours 06/22/18 06/22/18 06/22/18 06/22/18 04:05 04:07 04:31 04:36 Temp 97.9 Pulse 78 75 Resp 19 B/P (MAP) 129/79 (96) 129/79 118/107 (111) Pulse Ox 97 89 O2 Delivery Room Air 06/22/18 06/22/18 06/22/18 06/22/18 05:00 05:30 05:36 05:41 Pulse 66 66 B/P (MAP) 120/83 (95) 106/56 (73) Pulse Ox 90 90 06/22/18 06/22/18 06/22/18 06:00 06:30 06:35 Pulse 72 B/P (MAP) 105/66 (79) 115/77 (90) Pulse Ox 94 Physical Exam General Appearance: Alert, no acute distress. Eyes: Pupils are equal, round. ENT: Mucous membranes are moist. Respiratory: Breathing easily and unlabored. Cardiovascular: Regular rate and rhythm. No murmurs, gallops or rubs. Neurological: Alert and oriented x3. Normal sensation in the leg and foot. Skin: Warm and dry. No rashes. Musculoskeletal: Pain is in the posterior hip and gluteal area over the area of the SI joint. No anterior hip pain or groin pain. No lateral pain. Has chronic low back pain, mild at this time, none in midline. DIFFERENTIAL DIAGNOSIS: After history and physical exam, differential diagnosis was considered for low back and hip pain, seems to be sciatica, but will look for other causes by checking labs, x-rays. Provide Lortab 5/325 and Tizanidine 4mg. Medical Decision Making Data Points Result Diagram: 06/22/18 0436 06/22/18 0436 Laboratory Hematology Test 06/22/18 04:36 Red Blood Count 4.67 M/uL (4.17-5.56) Mean Corpuscular Volume 94.9 fL (80.0-96.0) Mean Corpuscular Hemoglobin 32.9 pg (26.0-33.0) Mean Corpuscular Hemoglobin Concent 34.7 g/dL (32.0-36.0) Red Cell Distribution Width 13.4 % (11.5-14.5) Mean Platelet Volume 10.3 fL (7.2-11.1) Neutrophils (%) (Auto) 56.9 % (39.4-72.5) Lymphocytes (%) (Auto) 29.7 % (17.6-49.6) Monocytes (%) (Auto) 6.8 % (4.1-12.4) Eosinophils (%) (Auto) 5.8 % (0.4-6.7) Basophils (%) (Auto) 0.8 % (0.3-1.4) Nucleated RBC Relative Count (auto) 0.1 /100WBC Neutrophils # (Auto) 5.4 K/uL (2.0-7.4) Lymphocytes # (Auto) 2.8 K/uL (1.3-3.6) Monocytes # (Auto) 0.6 K/uL (0.3-1.0) Eosinophils # (Auto) 0.6 K/uL (0.0-0.5) Basophils # (Auto) 0.1 K/uL (0.0-0.1) Nucleated RBC Absolute Count (auto) 0.00 K/uL Erythrocyte Sedimentation Rate 1 mm/HOUR (0-30) Sodium Level 138 mmol/L (137-145) Potassium Level 4.2 mmol/L (3.5-5.0) Chloride Level 103 mmol/L (98-107) Carbon Dioxide Level 28 mmol/L (22-31) Blood Urea Nitrogen 11 mg/dl (7-18) Creatinine 0.80 mg/dl (0.52-1.04) Glomerular Filtration Rate Calc > 60.0 Random Glucose 103 mg/dl (75-110) Calcium Level 9.1 mg/dl (8.4-10.2) Total Bilirubin 0.4 mg/dl (0.2-1.3) Aspartate Amino Transf (AST/SGOT) 33 U/L (0-35) Alanine Aminotransferase (ALT/SGPT) 23 U/L (0-56) Alkaline Phosphatase 63 U/L (0-126) C-Reactive Protein < 0.5 mg/dl (<1.0) Total Protein 7.0 g/dl (6.3-8.2) Albumin 4.1 g/dl (3.5-5.0) Chemistry Test 06/22/18 04:36 White Blood Count 9.4 k/uL (4.5-11.0) Red Blood Count 4.67 M/uL (4.17-5.56) Hemoglobin 15.4 g/dL (12.0-16.0) Hematocrit 44.3 % (34.0-47.0) Mean Corpuscular Volume 94.9 fL (80.0-96.0) Mean Corpuscular Hemoglobin 32.9 pg (26.0-33.0) Mean Corpuscular Hemoglobin Concent 34.7 g/dL (32.0-36.0) Red Cell Distribution Width 13.4 % (11.5-14.5) Platelet Count 255 K/uL (150-450) Mean Platelet Volume 10.3 fL (7.2-11.1) Neutrophils (%) (Auto) 56.9 % (39.4-72.5) Lymphocytes (%) (Auto) 29.7 % (17.6-49.6) Monocytes (%) (Auto) 6.8 % (4.1-12.4) Eosinophils (%) (Auto) 5.8 % (0.4-6.7) Basophils (%) (Auto) 0.8 % (0.3-1.4) Nucleated RBC Relative Count (auto) 0.1 /100WBC Neutrophils # (Auto) 5.4 K/uL (2.0-7.4) Lymphocytes # (Auto) 2.8 K/uL (1.3-3.6) Monocytes # (Auto) 0.6 K/uL (0.3-1.0) Eosinophils # (Auto) 0.6 K/uL (0.0-0.5) Basophils # (Auto) 0.1 K/uL (0.0-0.1) Nucleated RBC Absolute Count (auto) 0.00 K/uL Erythrocyte Sedimentation Rate 1 mm/HOUR (0-30) Glomerular Filtration Rate Calc > 60.0 Calcium Level 9.1 mg/dl (8.4-10.2) Total Bilirubin 0.4 mg/dl (0.2-1.3) Aspartate Amino Transf (AST/SGOT) 33 U/L (0-35) Alanine Aminotransferase (ALT/SGPT) 23 U/L (0-56) Alkaline Phosphatase 63 U/L (0-126) C-Reactive Protein < 0.5 mg/dl (<1.0) Total Protein 7.0 g/dl (6.3-8.2) Albumin 4.1 g/dl (3.5-5.0) EKG/Imaging Imaging INDICATION: right hip pain, posterior EXAM DATE: 06/22/2018 4:25 AM COMPARISON: CT abdomen and pelvis 04/28/2017. FINDINGS: AP and frog-leg views of the right hip. Mineralization is normal. 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 No apparent failure or loosening. No acute alignment abnormality or fracture. Soft tissues are nonacute. IMPRESSION: Bilateral hip prostheses with no apparent acute osseous abnormality of the right hip. Report Dictated By: Raymundo Farfan MD at 06/22/2018 5:17 AM ED Course/Re-evaluation ED Course No red flag symptoms. Labs and imaging unremarkable. Sciatica most likely, recommended Ibuprofen and physical therapy. Also Lortab and Tizanidine as needed. Decision to Disposition Date: June 22, 2018 Decision to Disposition Time: 06:52 Depart Departure Latest Vital Signs Vital Signs Date Time Temp Pulse Resp B/P (MAP) Pulse Ox O2 Delivery O2 Flow Rate FiO2 06/22/18 06:35 72 94 06/22/18 06:30 115/77 (90) 06/22/18 04:07 97.9 19 Room Air Impression: Primary Impression: Sciatica of right side Condition: Improved Disposition: HOME OR SELF-CARE Referrals: PAUL FERGUSON MD (PCP) New Scripts Tizanidine Hcl (TIZANIDINE HCL) 4 Mg Tablet 4 MG PO Q8H PRN for PAIN, #20 TAB 0 Refills Prov: SEEMA IGLESIAS MD 06/22/18 Hydrocodone Bit/Acetaminophen (HYDROCODON-ACETAMINOPHEN 5-325) 1 Each Tablet 1 EACH PO Q4H PRN for PAIN, #12 TAB 0 Refills Prov: SEEMA IGLESIAS MD 06/22/18 Patient Instructions: Sciatica (ED) Additional Instructions: Symptoms appear to be consistent with sciatica. Ibuprofen 200 mg [id number] tablets, 4 tablets every 8 hours with food Tizanidine 4 mg, one every 8 hours as needed for muscle spasm and pain. This medicine will make you drowsy. Lortab 5/325, one every 4 hours as needed for severe pain. This medicine will make you drowsy. Physical therapy prescription provided Return to the ER for reevaluation and possible need for lumbar spine MRI if you have incontinence of stool or urine, or weakness in the legs. SEEMA IGLESIAS MD June 22, 2018 04:15
[2018-06-22] MEDS ORDERED: oxyCODON/ACET (*)5/325MG (CII) 1 TAB TAB PO ONE (04:25)
[2018-06-22 05:20] LABS: PLATELET COUNT, AUTOMATED 255 K/uL (150-450)
--- NOTE | 2018-06-22 05:24 | RADIOLOGY IMAGING REPORT ---
FACILITY: [facility] PATIENT NAME: Vane Cline : 1965 MR: [id number] V: [id number] EXAM DATE: ORDERING PHYSICIAN: SEEMA IGLESIAS TECHNOLOGIST: Location: [facility] [place] Patient: Vane Cline : 1965 Visit/Account:[id number] Date of Sevice: 06/22/2018 INDICATION: right hip pain, posterior EXAM DATE: 06/22/2018 4:25 AM COMPARISON: CT abdomen and pelvis 04/28/2017. FINDINGS: AP and frog-leg views of the right hip. Mineralization is normal. 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 No apparent failure or loosening. No acute alignment abnormality or fracture. Soft tissues are no nacute. IMPRESSION: Bilateral hip prostheses with no apparent acute osseous abnormality of the right hip. Report Dictated By: Raymundo Farfan MD at 06/22/2018 5:17 AM Report E-Signed By: Raymundo Farfan MD at 06/22/2018 5:20 AM WSN:[id number]
[2018-06-22 06:30] VITALS: BP 115/77
[2018-06-22] MEDS ORDERED: TIZA-128 PO (06:55)
[2018-06-22] MEDS ORDERED: LOR5/325 PO (06:55)
== END 2018-06-22 07:08 | disposition home or self-care (01) ==
LOC: ER 04:02
DX: M54.31 Sciatica, right side (principal)
CPT/HCPCS: 36415; 82040; 82247; 82310; 82374; 82435; 82565; 82947; 84075; 84132; 84155; 84295; 84450; 84460; 84520; 85025; 85651; 86140; 99283

== ENCOUNTER → 2018-07-25 | Outpatient (CLI) | payer OTHER ==
[~2018-07-25] MED LIST changes: +TIZA-128 PO
--- NOTE | 2018-07-25 16:04 | RADIOLOGY IMAGING REPORT ---
FACILITY: [facility] [place] PATIENT NAME: JAMES SAENZ : [id number] MR: [id number] V: [id number] EXAM DATE: ORDERING PHYSICIAN: PAUL FERGUSON TECHNOLOGIST: Farrah Barksdale PROCEDURE: BILATERAL DIGITAL SCREENING MAMMOGRAM WITH CAD ASSISTED INTERPRETATION & 3D TOMOSYNTHESIS REASON FOR STUDY: Screening FAMILY HISTORY OF BREAST CANCER: None BREAST PROCEDURES/TREATMENTS: None COMPARISON: 05/31/16, 05/25/15, 01/20/14, 07/22/13, 02/18/13, 01/24/13 VIEWS OBTAINED: Bilateral 2D & 3D full field CC & MLO projections BREAST DENSITY: There are scattered areas of fibroglandular density throughout the breasts. MAMMOGRAM FINDINGS: The parenchymal pattern has remained stable allowing for difference in mammographic technique & patient positioning. IMPRESSION: BIRADS 1: Negative. DIAGNOSTIC CATEGORY 1--NEGATIVE. RECOMMENDATIONS: ROUTINE MAMMOGRAM AND CLINICAL EVALUATION. Dictated by: Leelee Cabrera M.D. on 07/25/2018 at 10:18 Transcribed by: LUDIN on 07/25/2018 at 11:28 Approved by: Leelee Cabrera M.D. on 07/25/2018 at 16:03 [facility]
== END ==
LOC: MAMO 00:57
PROVIDERS: ATTEND Obstetrics & Gynecology
DX: Z12.31 Encounter for screening mammogram for malignant neoplasm of breast (principal)
CPT/HCPCS: 77063; 77067